=== PATIENT | male | born 1990 | race Caucasian/White ===

== ENCOUNTER 2020-05-19 13:02 | Emergency (ER) | payer OTHER ==
[~2020-05-19] VITALS: Ht 182.9 cm; Wt 99.8 kg
[2020-05-19 13:18] VITALS: BP 147/91
[2020-05-19] MEDS ORDERED: IBUPROFEN 800 MG TAB PO ONE (14:30)
== END 2020-05-19 15:20 | disposition home or self-care (01) ==
LOC: ER 13:02
DX: S43.102A Unspecified dislocation of left acromioclavicular joint, initial encounter (principal); F17.210 Nicotine dependence, cigarettes, uncomplicated; W19.XXXA Unspecified fall, initial encounter; Y93.89 Activity, other specified; Y92.89 Other specified places as the place of occurrence of the external cause; Y99.8 Other external cause status
CPT/HCPCS: 73030